=== PATIENT | female | born 1955 | race Caucasian/White ===

== ENCOUNTER 2017-03-29 12:06 | Emergency (ER) | payer MEDICARE, MEDICAID | END 2017-03-29 12:33 | disposition home or self-care (01) | LOC: SCSER 12:06 | DX: J01.90 Acute sinusitis, unspecified (principal); M19.90 Unspecified osteoarthritis, unspecified site; E11.9 Type 2 diabetes mellitus without complications; E03.9 Hypothyroidism, unspecified; I10 Essential (primary) hypertension; F32.9 Major depressive disorder, single episode, unspecified; Z79.84 Long term (current) use of oral hypoglycemic drugs; Z79.899 Other long term (current) drug therapy | CPT/HCPCS: 99283 ==

== ENCOUNTER 2017-12-17 14:06 | Emergency (ER) | payer MEDICARE, MEDICAID ==
[2017-12-17 14:48] LABS: #Basophils 0.1 thou/uL (0.0-0.2); #Eosinphils 0.1 thou/uL (0.0-0.7); #Lymphocytes 2.8 thou/uL (1.20-3.40); #Monocytes 0.4 thou/uL (0.11-0.59); %Basophils 0.6 % (0.0-1.0); %Eosinophils 0.7 % (0.0-10.0); %Lymphocytes 24.8 % (21.0-51.0); %Monocytes 3.8 % (0.0-10.0); %Neutrophils 70.1 % (42.0-75.0); Hemoglobin 13.8 g/dL (12.0-16.0); Mean Corpuscular Hemoglobin 28.8 pg (27.0-31.0); Mean Corpuscular Volume 84.7 fL (78.0-98.0); Platelet Count 343 thou/uL (130-400); RBC Distribution Width 11.7 % (11.5-14.5); Red Blood Cell (RBC) Count 4.79 mill/uL (4.20-5.40); White Blood Cell (WBC) Count 11.4 thou/uL (4.8-10.8)
[2017-12-17 14:53] LABS: Bilirubin Small (Negative); Blood, Urine Negative (Negative); Glucose, Urine (Dipstick) Negative (Negative); Leukocyte Negative (Negative); Nitrite Negative (Negative); Protein, Urine (Dipstick) 30 mg/dL (Neg-Trace)
[2017-12-17 14:54] LABS: Specific Gravity, Urine 1.028 (1.002-1.036)
[2017-12-17 14:55] LABS: Clarity Hazy (Clear)
[2017-12-17 14:59] LABS: Bacteria/HPF 2+ HPF (None Seen); RBC/HPF None Seen HPF (0-3); WBC/HPF None Seen HPF (0-3)
[2017-12-17 15:00] LABS: ALT (SGPT) 30 U/L (8-55); AST (SGOT) 23 U/L (5-34); Albumin 3.7 g/dL (3.5-5.0); Alkaline Phosphatase 109 U/L (40-150); Anion Gap 15 mmol/L (10-20); BUN (Urea Nitrogen) 8 mg/dL (9.8-20.1); Bilirubin, Total 0.6 mg/dL (0.2-1.2); Calc. Creatinine Clearance 0 mL/min (70-130); Carbon Dioxide 21 mmol/L (22-29); Chloride 109 mmol/L (98-107); Estimated GFR-MDRD 85; Globulin 3.2 g/dL (2.4-3.5); Glucose 155 mg/dL (70-105); Potassium 3.1 mmol/L (3.5-5.1); Protein, Total 6.9 g/dL (6.0-8.3); Sodium 142 mmol/L (136-145)
[2017-12-17] MEDS ORDERED: Dicyclomine 20 MG TAB ONE (15:43)
[2017-12-17] MEDS ORDERED: Potassium Chloride 20 MEQ TAB ONE (15:43)
== END 2017-12-17 16:00 | disposition home or self-care (01) ==
LOC: SCSER 14:06
DX: K59.1 Functional diarrhea (principal); E66.9 Obesity, unspecified; E11.9 Type 2 diabetes mellitus without complications; M19.90 Unspecified osteoarthritis, unspecified site; I10 Essential (primary) hypertension; E03.9 Hypothyroidism, unspecified; F32.9 Major depressive disorder, single episode, unspecified; Z79.84 Long term (current) use of oral hypoglycemic drugs
CPT/HCPCS: 36415; 80053; 81003; 81015; 82150; 83690; 84443; 85025; 99284

== ENCOUNTER 2018-05-02 12:36 | Emergency (ER) | payer MEDICARE, MEDICAID | END 2018-05-02 13:02 | disposition home or self-care (01) | LOC: SCSER 12:36 | DX: K05.10 Chronic gingivitis, plaque induced (principal); M19.90 Unspecified osteoarthritis, unspecified site; E11.9 Type 2 diabetes mellitus without complications; E03.9 Hypothyroidism, unspecified; I10 Essential (primary) hypertension; F32.9 Major depressive disorder, single episode, unspecified; Z79.84 Long term (current) use of oral hypoglycemic drugs | CPT/HCPCS: 99282 ==

== ENCOUNTER 2018-07-02 12:04 | Emergency (ER) | payer MEDICARE, MEDICAID ==
[2018-07-02] MEDS ORDERED: Adacel (T-DAP) 0.5 ML SYRINGE ONE (12:20)
[2018-07-02] MEDS ORDERED: Bacitracin Zinc 1 Packet ONE (12:37)
== END 2018-07-02 12:30 | disposition home or self-care (01) ==
LOC: SCSER 12:04
DX: S61.215A Laceration without foreign body of left ring finger without damage to nail, initial encounter (principal); F32.9 Major depressive disorder, single episode, unspecified; M19.90 Unspecified osteoarthritis, unspecified site; E11.9 Type 2 diabetes mellitus without complications; Z79.84 Long term (current) use of oral hypoglycemic drugs; Z79.899 Other long term (current) drug therapy; W26.8XXA Contact with other sharp object(s), not elsewhere classified, initial encounter
CPT/HCPCS: 90471; 90715

== ENCOUNTER 2018-07-23 04:45 | Emergency (ER) | payer MEDICARE, MEDICAID ==
[2018-07-23] MEDS ORDERED: HYDROcodone/Acetaminophen 5/325 mg Tablet ONE (05:22)
[2018-07-23 05:43] LABS: Anion Gap 14 mmol/L (10-20); BUN (Urea Nitrogen) 18 mg/dL (9.8-20.1); Calc. Creatinine Clearance 0 mL/min (70-130); Calcium 9.7 mg/dL (7.8-10.44); Carbon Dioxide 21 mmol/L (23-31); Chloride 108 mmol/L (98-107); Estimated GFR-MDRD 84; Glucose 129 mg/dL (80-115); Magnesium 2.2 mg/dL (1.6-2.6); Sodium 139 mmol/L (136-145)
--- NOTE | 2018-07-23 07:42 | ULT ---
DOPPLER VENOUS ULTRASOUND OF THE RIGHT LOWER EXTREMITY: Date: 07/23/18 INDICATION: Sudden right thigh pain. Concern for deep venous thrombosis. TECHNIQUE: Cortes scale, color Doppler, and vascular duplex with spectral analysis was performed of the deep venou s structures of the right lower extremity. The common femoral vein, superficial femoral vein, proxima l greater saphenous vein, proximal greater profunda vein, popliteal, and posterior tibial veins were assessed. FINDINGS: Normal compression, flow, and augmentation was seen within the deep venous structures on the right lo wer extremity. IMPRESSION: No evidence of deep venous thrombosis within the right lower extremity. POS: [facility]
== END 2018-07-23 06:58 | disposition home or self-care (01) ==
LOC: SCSER 04:45
DX: M79.651 Pain in right thigh (principal); E03.9 Hypothyroidism, unspecified; F32.9 Major depressive disorder, single episode, unspecified; M19.90 Unspecified osteoarthritis, unspecified site; E11.9 Type 2 diabetes mellitus without complications; Z79.82 Long term (current) use of aspirin; Z79.84 Long term (current) use of oral hypoglycemic drugs; Z79.899 Other long term (current) drug therapy
CPT/HCPCS: 36415; 80048; 83735

== ENCOUNTER 2018-08-11 08:57 | Outpatient (CLI) | payer MEDICARE, MEDICAID ==
--- NOTE | 2018-08-11 12:03 | MRI ---
MRI LUMBAR SPINE WITHOUT CONTRAST: HISTORY: Lumbar spondylosis. Chronic back pain. COMPARISON: None. TECHNIQUE: A lumbar spine MRI is performed without intravenous Gadolinium administration. Multisequential, mult iplanar imaging is performed. FINDINGS: Appropriate T1 marrow signal intensity of the lumbar vertebrae. Lumbar spine vertebral body height i s maintained. There is no fracture. There is subtle T1 hypointensity with associated T2 and STIR hy perintensity involving the left and right pedicle at L5, as well as the left and right pedicle at S1. Reactive changes with marrow edema are suspected. No evidence of fracture. Appropriate signal intensity of the visualized solid organs. Symmetric signal intensity of the leticia ranulfo muscles and psoas muscles. The conus medullaris terminates at the inferior aspect of L1. T12-L1: Adequate disk hydration. No significant central canal stenosis. The neural foramina are pa tent. L1-L2: Adequate disk hydration. No significant central canal stenosis or foraminal narrowing. Ther e is mild mass effect upon the posterior left aspect of the thecal sac secondary to ligamentum flavum thickening and, to a lesser extent, facet hypertrophy. L2-L3: Adequate disk hydration. No significant posterior disk abnormality. Mild ligamentum flavum thickening and facet hypertrophy result in minimal central canal stenosis. The neural foramina are p atent. L3-L4: Desiccation with mild loss of disk space height. Generalized disk bulge, ligamentum flavum t hickening, and facet hypertrophy result in mild central canal stenosis. The neural foramina are severino nt bilaterally. L4-L5: Adequate disk hydration. No significant loss of disk space height. No significant posterior disk abnormality. There is ligamentum flavum thickening and facet hypertrophy. There is no signifi cant central canal stenosis. However, there is narrowing of both subarticular zones with some mass e ffect upon both traversing L5 nerve roots, left greater than right. Mild bilateral foraminal narrowi ng. L5-S1: Adequate disk hydration. No significant loss of disk space height. No significant central c anal stenosis. There is bilateral facet hypertrophy. Mild bilateral neural foraminal narrowing. IMPRESSION: 1. Narrowing of both subarticular zones at L4-L5 (left greater than right). There is some mass effe ct upon the bilateral traversing L5 nerve roots. 2. Edematous change involving the posterior elements bilaterally at L5 and S1 like due to stress lucila ction. POS: [facility]
== END 2018-08-11 08:58 | disposition home or self-care (01) ==
LOC: SCSMRI 08:57
PROVIDERS: ATTEND Anesthesiology Pain Medicine
DX: M47.896 Other spondylosis, lumbar region (principal); G89.4 Chronic pain syndrome; M54.5 Low back pain; Z68.41 Body mass index [BMI] 40.0-44.9, adult; M48.061 Spinal stenosis, lumbar region without neurogenic claudication; Z79.899 Other long term (current) drug therapy
CPT/HCPCS: 72148

== ENCOUNTER 2018-08-18 09:07 | Outpatient (CLI) | payer MEDICARE, MEDICAID ==
--- NOTE | 2018-08-18 10:55 | RAD ---
LUMBAR SPINE 3 VIEWS: Date: 08/18/18 INDICATION: Low back pain. COMPARISON: MRI lumbar spine dated 08/11/18. FINDINGS: There are small riblets at L1. There is moderate disc degenerative disease at L4-5 and L3-4. No acute fracture is evident. Spinal alignment is preserved. Surgical clips right upper quadrant. IMPRESSION: Moderate spondylosis lumbar spine. POS: [facility]
== END 2018-08-18 09:08 | disposition home or self-care (01) ==
LOC: SCSRAD 09:07
DX: M54.5 Low back pain (principal); M47.816 Spondylosis without myelopathy or radiculopathy, lumbar region
CPT/HCPCS: 72100

== ENCOUNTER 2018-12-02 13:01 | Emergency (ER) | payer MEDICARE, MEDICAID ==
[2018-12-02] MEDS ORDERED: Lidocaine Viscous Sol 2% 15 ml UD Cup ONE (13:56)
== END 2018-12-02 14:50 | disposition home or self-care (01) ==
LOC: SCSER 13:01
DX: K04.7 Periapical abscess without sinus (principal); E11.9 Type 2 diabetes mellitus without complications; I10 Essential (primary) hypertension; M19.90 Unspecified osteoarthritis, unspecified site; F32.9 Major depressive disorder, single episode, unspecified; Z79.891 Long term (current) use of opiate analgesic; Z79.84 Long term (current) use of oral hypoglycemic drugs; Z79.899 Other long term (current) drug therapy
CPT/HCPCS: 41800

== ENCOUNTER 2019-01-18 11:47 | Emergency (ER) | payer MEDICARE, MEDICAID ==
[2019-01-18 12:38] LABS: #Basophils 0.1 thou/uL (0.0-0.2); #Eosinphils 0.1 thou/uL (0.0-0.7); #Lymphocytes 2.4 thou/uL (1.20-3.40); #Monocytes 0.5 thou/uL (0.11-0.59); #Neutrophils 6.3 thou/uL (1.40-6.50); %Basophils 1.2 % (0.0-1.0); %Eosinophils 1.2 % (0.0-10.0); %Monocytes 5.6 % (0.0-10.0); Hemoglobin 13.9 g/dL (12.0-16.0); Mean Corpuscular HGB CONC 33.2 g/dL (32.0-36.0); Mean Corpuscular Hemoglobin 29.7 pg (27.0-31.0); Mean Corpuscular Volume 89.2 fL (78.0-98.0); Mean Platelet Volume 5.9 fL (7.4-10.4); Platelet Count 357 thou/uL (130-400); RBC Distribution Width 12.2 % (11.5-14.5); Red Blood Cell (RBC) Count 4.68 mill/uL (4.20-5.40); White Blood Cell (WBC) Count 9.5 thou/uL (4.8-10.8)
[2019-01-18 12:50] LABS: ALT (SGPT) 17 U/L (8-55); AST (SGOT) 18 U/L (5-34); Albumin 3.8 g/dL (3.4-4.8); Alkaline Phosphatase 112 U/L (40-150); Anion Gap 11 mmol/L (10-20); BUN (Urea Nitrogen) 13 mg/dL (9.8-20.1); Bilirubin, Total 0.5 mg/dL (0.2-1.2); Calc. Creatinine Clearance 0 mL/min (70-130); Calcium 9.2 mg/dL (7.8-10.44); Carbon Dioxide 26 mmol/L (23-31); Chloride 105 mmol/L (98-107); Estimated GFR-MDRD 73; Globulin 3.5 g/dL (2.4-3.5); Glucose 99 mg/dL (80-115); Lipase 8 U/L (8-78); Potassium 4.2 mmol/L (3.5-5.1); Protein, Total 7.3 g/dL (6.0-8.3); Sodium 138 mmol/L (136-145)
[2019-01-18] MEDS ORDERED: Pantoprazole 40 MG VIAL ONE (12:54)
[2019-01-18] MEDS ORDERED: Ondansetron PF 4 MG/2 ML Vial ONE (12:54)
[2019-01-18 13:53] LABS: Bilirubin Small (Negative); Blood, Urine Negative (Negative); Glucose, Urine (Dipstick) Negative (Negative); Leukocyte Negative (Negative); Nitrite Negative (Negative); Protein, Urine (Dipstick) 30 mg/dL (Neg-Trace)
[2019-01-18 13:54] LABS: Clarity Hazy (Clear)
[2019-01-18 13:59] LABS: Bacteria/HPF Rare-Few HPF (None Seen); Mucous/LPF 1+ LPF (<2+); RBC/HPF None Seen HPF (0-3); WBC/HPF None Seen HPF (0-3)
== END 2019-01-18 14:25 | disposition home or self-care (01) ==
LOC: SCSER 11:47
DX: K29.00 Acute gastritis without bleeding (principal); R11.2 Nausea with vomiting, unspecified; E11.9 Type 2 diabetes mellitus without complications; E03.9 Hypothyroidism, unspecified; I10 Essential (primary) hypertension; F32.9 Major depressive disorder, single episode, unspecified
CPT/HCPCS: 36416; 80053; 81003; 81015; 83605; 83690; 84484; 85025; 96374; 96375; C9113; J2405

== ENCOUNTER 2019-02-10 10:55 | Emergency (ER) | payer MEDICARE, MEDICAID | END 2019-02-10 12:10 | disposition home or self-care (01) | LOC: SCSER 10:55 | DX: H92.01 Otalgia, right ear (principal); E11.9 Type 2 diabetes mellitus without complications; E03.9 Hypothyroidism, unspecified; I10 Essential (primary) hypertension; M19.90 Unspecified osteoarthritis, unspecified site; F32.9 Major depressive disorder, single episode, unspecified | CPT/HCPCS: 99282 ==

== ENCOUNTER 2019-02-15 10:58 | Emergency (ER) | payer MEDICARE, MEDICAID ==
--- NOTE | 2019-02-15 12:09 | RAD ---
LEFT KNEE 4 VIEWS: HISTORY: Fall with knee pain. FINDINGS: There are moderate arthritic changes of the knee with moderate medial compartment degenerative change , also fairly severe patellofemoral degenerative changes and some lateral compartment arthritic pope e. No joint effusion or fracture. IMPRESSION: Marked arthritic changes of the knee without evidence of fracture. POS: [facility]
== END 2019-02-15 12:12 | disposition home or self-care (01) ==
LOC: SCSER 10:58
DX: S80.02XA Contusion of left knee, initial encounter (principal); E11.9 Type 2 diabetes mellitus without complications; E03.9 Hypothyroidism, unspecified; I10 Essential (primary) hypertension; F32.9 Major depressive disorder, single episode, unspecified; W01.10XA Fall on same level from slipping, tripping and stumbling with subsequent striking against unspecified object, initial encounter
CPT/HCPCS: 99281

== ENCOUNTER 2019-04-18 13:13 | Emergency (ER) | payer MEDICARE, MEDICAID ==
--- NOTE | 2019-04-18 13:58 | RAD ---
LEFT KNEE FOUR VIEWS: HISTORY: Left knee pain. FINDINGS: Degenerative changes are present. These are similar to those seen on 02/15/2019. No fracture, disloca tion or bony destruction is seen. IMPRESSION: Stable examination. POS: [facility]
== END 2019-04-18 14:18 | disposition home or self-care (01) ==
LOC: SCSER 13:13
DX: M25.562 Pain in left knee (principal); E11.9 Type 2 diabetes mellitus without complications; F32.9 Major depressive disorder, single episode, unspecified; E03.9 Hypothyroidism, unspecified; I10 Essential (primary) hypertension; M19.90 Unspecified osteoarthritis, unspecified site; M06.9 Rheumatoid arthritis, unspecified; Z79.899 Other long term (current) drug therapy; Z79.891 Long term (current) use of opiate analgesic

== ENCOUNTER 2023-12-28 13:18 | Outpatient (CLI) | payer OTHER, MEDICAID | END 2023-12-28 13:19 | disposition home or self-care (01) | LOC: SCSRAD 13:18 | PROVIDERS: ATTEND Nurse Practitioner Family | DX: M47.817 Spondylosis without myelopathy or radiculopathy, lumbosacral region (principal); M25.561 Pain in right knee; M47.816 Spondylosis without myelopathy or radiculopathy, lumbar region; M17.11 Unilateral primary osteoarthritis, right knee | CPT/HCPCS: 72120 ==